=== PATIENT | male | born 1975 | race Two or more races ===

== ENCOUNTER → 2020-12-08 | Outpatient (CLI) | payer OTHER ==
--- NOTE | 2020-12-08 09:59 | RAD ---
EXAM: Bilateral knees, standing view; left knee, 2 views. HISTORY: Pain. COMPARISON: None. FINDINGS: A standing view both knees and 2 views of the left knee are obtained. There are postoperati ve changes due to prior bilateral anterior cruciate ligament repair. There is a small left knee effus ion. There is no acute fracture, dislocation or subluxation. IMPRESSION: 1. Small left knee effusion. 2. Findings consistent with bilateral cruciate ligament surgery. Electronically signed by: Marlene Chandler MD (12/08/2020 9:56 AM) [id number]
== END ==
LOC: EDBD 09:34 → RAD 09:34
PROVIDERS: ATTEND Physician Assistant
DX: M25.462 Effusion, left knee (principal); M25.562 Pain in left knee
CPT/HCPCS: 73560; 73565